=== PATIENT | male | born 1960 | race Caucasian/White ===

== ENCOUNTER 2024-05-28 04:10 | Day surgery (SDC) | payer BC ==
[2024-05-26 08:46] VITALS: BMI 30.2
[2024-05-28 08:38] VITALS: TEMP 97.7
[2024-05-28 08:51] VITALS: RESP 16
[2024-05-28 09:13] VITALS: BP 137/79; PULSE 58
== END 2024-05-28 09:12 | disposition home or self-care (01) ==
LOC: JASU-ENDO 04:10
PROVIDERS: ATTEND Internal Medicine Gastroenterology
PROC: 0DJD8ZZ Inspection of Lower Intestinal Tract, Via Natural or Artificial Opening Endoscopic (ICD-10-PCS; principal; 2024-05-28 08:00)
DX: Z12.11 Encounter for screening for malignant neoplasm of colon (principal); K57.30 Diverticulosis of large intestine without perforation or abscess without bleeding